=== PATIENT | male | born 1960 | race Caucasian/White ===

== ENCOUNTER 2017-04-21 15:06 | Inpatient (IN) ==
[2017-04-21] MEDS ORDERED: ENOXAPARIN 100 MG/ML SYRINGE SUBCUT STA (16:06)
[2017-04-21] MEDS ORDERED: NITROGLYCERIN SL 0.4 MG TABLET SL PRN (16:06)
[2017-04-21] MEDS ORDERED: ENOXAPARIN 100 MG/ML SYRINGE SUBCUT ONE (16:26)
[2017-04-21] MEDS ORDERED: NITROGLYCERIN 2% OINT 1 INCH/GM PACK TOP ONE (16:27)
[2017-04-21 16:34] LABS: Basophils % 0.7 % (0.0-0.8); Eosinophils # 0.1 10*3/uL (0.0-0.87); Eosinophils % 1.4 % (0.00-10.9); Hematocrit 22.8 VOL% (42.0-52.0); Hemoglobin 7.2 GM/DL (14.0-18.0); Immature Granulocytes % 0.2 %; Immature Granulocytes Absolute 0.01 #; Lymphocytes % 22.4 % (21.2-54.2); Mean Corpuscular HGB Conc 31.6 GM/DL (32-36); Mean Corpuscular Hemoglobin 26 PG (27-34); Mean Corpuscular Volume 82.9 FL (87-102); Mean Platelet Volume 11.6 FL (9.6-12.0); Monocytes # 0.5 10*3/uL (0.11-0.8); Monocytes % 11.3 % (1.7-12.7); Neutrophils # 2.7 10*3/uL (1.4-7.4); Platelet Count 125 T/CUMM (130-400); Red Blood Count 2.75 MC/CUMM (3.8-5.5); Red Cell Distribution Width 14.4 % (9.3-17.3); White Blood Count 4.2 T/CUMM (4-12)
[2017-04-21 17:09] LABS: Albumin 3.5 G/DL (3.4-5.0); Bilirubin,Total 0.4 MG/DL (0.2-1.0); Calcium 8.3 MG/DL (8.5-10.1); Osmolality,Calculated 285.4 MOS/KG (273-304); Potassium 4.5 MMOL/L (3.5-5.1); Total Protein 6.7 G/DL (6.4-8.3)
[2017-04-21] MEDS ORDERED: SODIUM CHLORIDE 0.9% 1,000 ML IV STA (17:17)
[2017-04-21] MEDS ORDERED: ONDANSETRON 4 MG/2 ML VIAL IV PRN (18:08)
[2017-04-21] MEDS ORDERED: GLUCAGON 1 MG VIAL IM PRN (18:08)
[2017-04-21] MEDS ORDERED: DEXTROSE 50% 25 GM/50 ML VIAL IV PRN (18:08)
[2017-04-21] MEDS ORDERED: LACTULOSE 20 GM/30 ML UDCUP PO PRN (18:08)
[2017-04-21] MEDS ORDERED: SODIUM CHLORIDE 0.9% 250 ML IV PRN (18:08)
[2017-04-21] MEDS ORDERED: DOCUSATE SODIUM 100 MG CAPSULE PO PRN (18:08)
[2017-04-21 18:37] LABS: Hematocrit 22.2 VOL% (42.0-52.0); Hemoglobin 7.3 GM/DL (14.0-18.0)
[2017-04-21 19:13] LABS: % Iron Saturation 2.8 % (18-50); Ferritin 22.4 ng/ml (26-388)
[2017-04-21 19:21] LABS: Folate 20.8 NG/ML (5.4-24.0)
[2017-04-21] MEDS ORDERED: ATORVASTATIN 20 MG TABLET PO SCH (23:28)
[2017-04-22 00:07] LABS: INR 1.1; PT Patient Result 11.3 SECS; Partial Thromboplastin Time 26.8 SECS (0-40)
[2017-04-22] MEDS ORDERED: CETIRIZINE 10 MG TABLET PO STA (01:22)
[2017-04-22] MEDS ORDERED: CETIRIZINE 10 MG TABLET ONE (01:33)
[2017-04-22] MEDS ORDERED: ATORVASTATIN 40 MG TABLET ONE (01:33)
[2017-04-22] MEDS ORDERED: PANTOPRAZOLE 40 MG VIAL IV ONE (01:33)
[2017-04-22] MEDS: PANTOPRAZOLE 40 MG VIAL IV SCH ×3 (01:37→21:39)
[2017-04-22] MEDS: INSULIN LISPRO 100 UNIT/ML SUBCUT SCH ×5 (01:42→21:39)
[2017-04-22 04:11] LABS: Basophils # 0.1 10*3/uL (0.0-0.2); Basophils % 1.4 % (0.0-0.8); Eosinophils # 0.1 10*3/uL (0.0-0.87); Eosinophils % 1.8 % (0.00-10.9); Hematocrit 25.5 VOL% (42.0-52.0); Hemoglobin 8.2 GM/DL (14.0-18.0); Immature Granulocytes % 0.2 %; Immature Granulocytes Absolute 0.01 #; Lymphocytes # 1.3 10*3/uL (1.4-4.0); Lymphocytes % 30.2 % (21.2-54.2); Mean Corpuscular HGB Conc 32.2 GM/DL (32-36); Mean Corpuscular Hemoglobin 26 PG (27-34); Mean Platelet Volume 11.8 FL (9.6-12.0); Monocytes # 0.6 10*3/uL (0.11-0.8); Monocytes % 14.1 % (1.7-12.7); Neutrophils # 2.3 10*3/uL (1.4-7.4); Neutrophils % 52.3 % (38.7-73.9); Platelet Count 111 T/CUMM (130-400); Red Blood Count 3.11 MC/CUMM (3.8-5.5); Red Cell Distribution Width 13.9 % (9.3-17.3); White Blood Count 4.4 T/CUMM (4-12)
[2017-04-22 04:53] LABS: Albumin 3.5 G/DL (3.4-5.0); Bilirubin,Total 0.4 MG/DL (0.2-1.0); Calcium 8.3 MG/DL (8.5-10.1); Osmolality,Calculated 282.5 MOS/KG (273-304); Potassium 3.9 MMOL/L (3.5-5.1); Risk Ratio 8.39; Total Protein 6.4 G/DL (6.4-8.3); VLDL CHOLESTEROL 55.2 MG/DL
[2017-04-22] MEDS ORDERED: ACETAMINOPHEN 325 MG TABLET ONE (05:16)
[2017-04-22] MEDS: ACETAMINOPHEN 325 MG TABLET PO PRN ×2 (05:18→12:23)
[2017-04-22] MEDS: SODIUM CHLORIDE 0.9% 1,000 ML IV SCH ×2 (08:34→18:08)
[2017-04-22 09:24] LABS: Hematocrit 27.3 VOL% (42.0-52.0); Hemoglobin 8.6 GM/DL (14.0-18.0)
[2017-04-22] MEDS ORDERED: SODIUM CHLORIDE 0.9% 1,000 ML IV SCH (09:56)
[2017-04-22] MEDS: GABAPENTIN 300 MG CAPSULE PO SCH (09:59)
[2017-04-22] MEDS: SERTRALINE 25 MG TABLET PO SCH (09:59)
[2017-04-22] MEDS ORDERED: IRON DEXTRAN 25 MG in SYRINGE 1 EACH IV ONE (10:00)
[2017-04-22] MEDS ORDERED: IRON DEXTRAN IV ONE (10:30)
[2017-04-22] MEDS ORDERED: SODIUM CHLORIDE 0.9% IV ONE (10:30)
[2017-04-22] MEDS ORDERED: MORPHINE 2 MG/1 ML SYRINGE IV PRN (11:32)
[2017-04-22] MEDS: EZETIMIBE 10 MG TABLET PO SCH (12:22)
[2017-04-22 12:31] LABS: Hematocrit 28.8 VOL% (42.0-52.0); Hemoglobin 9.2 GM/DL (14.0-18.0)
[2017-04-22] MEDS: CARVEDILOL 3.125 MG TABLET PO SCH ×2 (15:18→21:39)
[2017-04-22] MEDS: INSULIN GLARGINE 100 UNIT/ML SUBCUT SCH (17:01)
[2017-04-23 03:11] LABS: Hematocrit 27.7 VOL% (42.0-52.0); Hemoglobin 8.9 GM/DL (14.0-18.0); Lymphocytes % 21.5 % (21.2-54.2); Mean Corpuscular HGB Conc 32.1 GM/DL (32-36); Mean Corpuscular Hemoglobin 27 PG (27-34); Mean Corpuscular Volume 82.9 FL (87-102); Mean Platelet Volume 12.1 FL (9.6-12.0); Monocytes % 11.1 % (1.7-12.7); Neutrophils % 64.2 % (38.7-73.9); Platelet Count 110 T/CUMM (130-400); Red Blood Count 3.34 MC/CUMM (3.8-5.5); Red Cell Distribution Width 14.4 % (9.3-17.3)
[2017-04-23 03:12] LABS: Basophils % 0.8 % (0.0-0.8); Eosinophils # 0.1 10*3/uL (0.0-0.87); Immature Granulocytes % 0.4 %; Immature Granulocytes Absolute 0.02 #; Lymphocytes # 1.1 10*3/uL (1.4-4.0); Monocytes # 0.6 10*3/uL (0.11-0.8); Neutrophils # 3.2 10*3/uL (1.4-7.4)
[2017-04-23 04:16] LABS: Albumin 3.2 G/DL (3.4-5.0); Bilirubin,Total 0.8 MG/DL (0.2-1.0); Calcium 8.1 MG/DL (8.5-10.1); Osmolality,Calculated 285.1 MOS/KG (273-304); Potassium 4.2 MMOL/L (3.5-5.1); Total Protein 6.2 G/DL (6.4-8.3)
[2017-04-23] MEDS: ACETAMINOPHEN 325 MG TABLET PO PRN ×2 (05:11→20:57)
[2017-04-23] MEDS: CARVEDILOL 3.125 MG TABLET PO SCH ×2 (09:26→20:58)
[2017-04-23] MEDS: SERTRALINE 25 MG TABLET PO SCH (09:26)
[2017-04-23] MEDS: PANTOPRAZOLE 40 MG VIAL IV SCH (09:27)
[2017-04-23] MEDS: GABAPENTIN 300 MG CAPSULE PO SCH (09:27)
[2017-04-23] MEDS: EZETIMIBE 10 MG TABLET PO SCH (09:30)
[2017-04-23] MEDS: Liraglutide [Victoza 2-Pak] 1.8 MG SUBCUT SCH (10:14)
[2017-04-23] MEDS: INSULIN LISPRO 100 UNIT/ML SUBCUT SCH ×4 (10:14→20:57)
[2017-04-23] MEDS: ASPIRIN EC 81 MG TABLET PO SCH (13:20)
[2017-04-23] MEDS: INSULIN GLARGINE 100 UNIT/ML SUBCUT SCH (13:21)
[2017-04-23] MEDS: PANTOPRAZOLE 40 MG TABLET PO SCH (20:57)
[2017-04-24 06:35] LABS: Basophils % 0.9 % (0.0-0.8); Eosinophils # 0.1 10*3/uL (0.0-0.87); Eosinophils % 2.1 % (0.00-10.9); Hematocrit 28.1 VOL% (42.0-52.0); Hemoglobin 8.9 GM/DL (14.0-18.0); Immature Granulocytes % 0.6 %; Immature Granulocytes Absolute 0.03 #; Lymphocytes # 1.4 10*3/uL (1.4-4.0); Lymphocytes % 29.8 % (21.2-54.2); Mean Corpuscular HGB Conc 31.7 GM/DL (32-36); Mean Corpuscular Hemoglobin 26 PG (27-34); Mean Corpuscular Volume 82.9 FL (87-102); Mean Platelet Volume 11.5 FL (9.6-12.0); Monocytes # 0.6 10*3/uL (0.11-0.8); Monocytes % 13.7 % (1.7-12.7); Neutrophils # 2.5 10*3/uL (1.4-7.4); Neutrophils % 52.9 % (38.7-73.9); Platelet Count 106 T/CUMM (130-400); Red Blood Count 3.39 MC/CUMM (3.8-5.5); Red Cell Distribution Width 14.7 % (9.3-17.3); White Blood Count 4.7 T/CUMM (4-12)
[2017-04-24 07:01] LABS: Albumin 3.1 G/DL (3.4-5.0); Bilirubin,Total 0.9 MG/DL (0.2-1.0); Calcium 8.6 MG/DL (8.5-10.1); Osmolality,Calculated 282.1 MOS/KG (273-304); Total Protein 5.9 G/DL (6.4-8.3)
[2017-04-24 08:31] VITALS: BP 120/68
[2017-04-24] MEDS: INSULIN LISPRO 100 UNIT/ML SUBCUT SCH (08:54)
[2017-04-24] MEDS: ASPIRIN EC 81 MG TABLET PO SCH (08:56)
[2017-04-24] MEDS: INSULIN GLARGINE 100 UNIT/ML SUBCUT SCH (08:56)
[2017-04-24] MEDS: GABAPENTIN 300 MG CAPSULE PO SCH (08:56)
[2017-04-24] MEDS: EZETIMIBE 10 MG TABLET PO SCH (08:56)
[2017-04-24] MEDS: SERTRALINE 25 MG TABLET PO SCH (08:56)
[2017-04-24] MEDS: PANTOPRAZOLE 40 MG TABLET PO SCH (08:56)
[2017-04-24] MEDS: CARVEDILOL 3.125 MG TABLET PO SCH (08:56)
[2017-04-24] MEDS: Liraglutide [Victoza 2-Pak] 1.8 MG SUBCUT SCH (10:16)
== END 2017-04-24 12:33 | disposition home or self-care (01) | DRG 281 ==
LOC: N.ED 15:06 → N.EDINP 17:34 → N.CC 04-22 05:57 → N.TELEN 04-22 16:09
PROVIDERS: ADMIT Internal Medicine; ATTEND Internal Medicine

== ENCOUNTER 2017-08-12 15:57 | Inpatient (IN) ==
[2017-08-12] MEDS ORDERED: NITROGLYCERIN 2% OINT 1 INCH/GM PACK TOP ONE (16:14)
[2017-08-12] MEDS ORDERED: ENOXAPARIN 120 MG/0.8 ML SYRINGE SUBCUT ONE (16:14)
[2017-08-12] MEDS ORDERED: ASPIRIN EC 325 MG TABLET PO ONE (16:14)
[2017-08-12] MEDS ORDERED: ASPIRIN 325 MG TABLET ONE (16:16)
[2017-08-12] MEDS ORDERED: NITROGLYCERIN SL 0.4 MG TABLET SL PRN (16:18)
[2017-08-12] MEDS ORDERED: ASPIRIN 325 MG TABLET PO STA (16:18)
[2017-08-12] MEDS ORDERED: ENOXAPARIN 100 MG/ML SYRINGE SUBCUT STA (16:18)
[2017-08-12 16:24] LABS: Basophils % 0.9 % (0.0-0.8); Eosinophils % 0.6 % (0.00-10.9); Hemoglobin 7.6 GM/DL (14.0-18.0); Immature Granulocytes % 0.3 %; Immature Granulocytes Absolute 0.01 #; Lymphocytes # 0.8 10*3/uL (1.4-4.0); Lymphocytes % 24.1 % (21.2-54.2); Mean Corpuscular HGB Conc 29.2 GM/DL (32-36); Mean Corpuscular Hemoglobin 22 PG (27-34); Mean Corpuscular Volume 75.1 FL (87-102); Mean Platelet Volume 11.8 FL (9.6-12.0); Monocytes # 0.4 10*3/uL (0.11-0.8); Monocytes % 10.3 % (1.7-12.7); Neutrophils # 2.2 10*3/uL (1.4-7.4); Neutrophils % 63.8 % (38.7-73.9); Platelet Count 127 T/CUMM (130-400); Red Blood Count 3.46 MC/CUMM (3.8-5.5); Red Cell Distribution Width 15.9 % (9.3-17.3); White Blood Count 3.4 T/CUMM (4-12)
[2017-08-12 16:51] LABS: Alanine Aminotransferase 35 U/L (16-61); Albumin 3.8 G/DL (3.4-5.0); Alkaline Phosphatase 88 U/L (45-117); Aspartate Amino Transferase 27 U/L (0-37); Bilirubin,Total < 0.39 MG/DL (0.2-1.0); Blood Urea Nitrogen 12 MG/DL (7-18); Glucose 220 MG/DL (74-106); Magnesium 2.2 MG/DL (1.8-2.4); Osmolality,Calculated 283.5 MOS/KG (273-304); Potassium 4.3 MMOL/L (3.5-5.1); Sodium 139 MMOL/L (136-145); Total Protein 7.2 G/DL (6.4-8.3)
[2017-08-12] MEDS ORDERED: HYDROmorphone 2 MG/1 ML VIAL ONE (17:11)
[2017-08-12] MEDS ORDERED: MIDAZOLAM 2 MG/2 ML VIAL ONE (17:11)
[2017-08-12] MEDS ORDERED: LIDOCAINE 1% 20 ML VIAL ONE (17:12)
[2017-08-12] MEDS ORDERED: TICAGRELOR 90 MG TABLET ONE (17:35)
[2017-08-12] MEDS ORDERED: ONDANSETRON 4 MG/2 ML VIAL IV PRN (18:31)
[2017-08-12] MEDS ORDERED: SODIUM CHLORIDE 0.45% 1,000 ML IV SCH (19:00)
[2017-08-12] MEDS ORDERED: METOPROLOL TARTRATE 50 MG TABLET PO SCH (21:00)
[2017-08-12] MEDS: ROSUVASTATIN 20 MG TABLET PO SCH (21:23)
[2017-08-12] MEDS: GLIMEPIRIDE 2 MG TABLET PO SCH (21:23)
[2017-08-12] MEDS: OMEGA 3 ACID ETHYL ESTERS 1 GM CAPSULE PO SCH (21:23)
[2017-08-12] MEDS: ACETAMINOPHEN 325 MG TABLET PO SCH (21:23)
[2017-08-12] MEDS: CARVEDILOL 12.5 MG TABLET PO SCH (21:24)
[2017-08-13 06:06] LABS: Basophils % 0.6 % (0.0-0.8); Eosinophils # 0.1 10*3/uL (0.0-0.87); Eosinophils % 1.3 % (0.00-10.9); Hematocrit 27.2 VOL% (42.0-52.0); Hemoglobin 8.1 GM/DL (14.0-18.0); Immature Granulocytes % 0.3 %; Immature Granulocytes Absolute 0.02 #; Lymphocytes # 1.1 10*3/uL (1.4-4.0); Lymphocytes % 18.2 % (21.2-54.2); Mean Corpuscular HGB Conc 29.8 GM/DL (32-36); Mean Corpuscular Hemoglobin 22 PG (27-34); Mean Corpuscular Volume 73.1 FL (87-102); Mean Platelet Volume 11.6 FL (9.6-12.0); Monocytes # 0.7 10*3/uL (0.11-0.8); Monocytes % 10.8 % (1.7-12.7); Neutrophils # 4.3 10*3/uL (1.4-7.4); Neutrophils % 68.8 % (38.7-73.9); Platelet Count 148 T/CUMM (130-400); Red Blood Count 3.72 MC/CUMM (3.8-5.5); Red Cell Distribution Width 15.8 % (9.3-17.3); White Blood Count 6.3 T/CUMM (4-12)
[2017-08-13 06:42] LABS: CKMB % 4.9 %; Calcium 9.3 MG/DL (8.5-10.1); Osmolality,Calculated 276.5 MOS/KG (273-304); Potassium 3.3 MMOL/L (3.5-5.1)
[2017-08-13 06:48] LABS: Troponin I Only 2.47 NG/ML (0.00-0.045)
[2017-08-13] MEDS ORDERED: PANTOPRAZOLE 40 MG TABLET PO SCH (09:00)
[2017-08-13] MEDS: ROSUVASTATIN 20 MG TABLET PO SCH (09:39)
[2017-08-13] MEDS: OMEGA 3 ACID ETHYL ESTERS 1 GM CAPSULE PO SCH ×2 (09:39→21:10)
[2017-08-13] MEDS: ASPIRIN EC 81 MG TABLET PO SCH (09:39)
[2017-08-13] MEDS: CARVEDILOL 12.5 MG TABLET PO SCH ×2 (09:39→17:06)
[2017-08-13] MEDS: MULTIVITAMIN (CENTRUM) TABLET PO SCH (09:39)
[2017-08-13] MEDS: GABAPENTIN 300 MG CAPSULE PO SCH (09:39)
[2017-08-13] MEDS: GLIMEPIRIDE 2 MG TABLET PO SCH ×2 (09:39→21:10)
[2017-08-13] MEDS: MONTELUKAST 10 MG TABLET PO SCH (09:40)
[2017-08-13] MEDS: EZETIMIBE 10 MG TABLET PO SCH (09:40)
[2017-08-13] MEDS: ACETAMINOPHEN 325 MG TABLET PO SCH (09:40)
[2017-08-13] MEDS: SERTRALINE 25 MG TABLET PO SCH (09:40)
[2017-08-13] MEDS ORDERED: POTASSIUM CHLORIDE 20 MEQ TABLET PO ONE (10:01)
[2017-08-13] MEDS ORDERED: CLOPIDOGREL 300 MG TABLET PO ONE ×2 (10:01→10:06)
[2017-08-13] MEDS ORDERED: LISINOPRIL 5 MG TABLET PO SCH (10:30)
[2017-08-13] MEDS: FAMOTIDINE 20 MG TABLET PO SCH ×2 (10:31→21:10)
[2017-08-13] MEDS: Insulin Degludec [Tresiba Flextouch U-100] SUBCUT SCH (17:06)
[2017-08-14] MEDS: GLIMEPIRIDE 2 MG TABLET PO SCH ×2 (08:34→21:01)
[2017-08-14] MEDS: ASPIRIN EC 81 MG TABLET PO SCH (08:34)
[2017-08-14] MEDS: MONTELUKAST 10 MG TABLET PO SCH (08:34)
[2017-08-14] MEDS: GABAPENTIN 300 MG CAPSULE PO SCH (08:34)
[2017-08-14] MEDS: CLOPIDOGREL 75 MG TABLET PO SCH (08:34)
[2017-08-14] MEDS: SERTRALINE 25 MG TABLET PO SCH (08:35)
[2017-08-14] MEDS: MULTIVITAMIN (CENTRUM) TABLET PO SCH (08:35)
[2017-08-14] MEDS: ROSUVASTATIN 20 MG TABLET PO SCH (08:35)
[2017-08-14] MEDS: FAMOTIDINE 20 MG TABLET PO SCH ×2 (08:35→21:01)
[2017-08-14] MEDS: OMEGA 3 ACID ETHYL ESTERS 1 GM CAPSULE PO SCH ×2 (08:35→21:01)
[2017-08-14] MEDS: Liraglutide [Victoza 2-Pak] SUBCUT SCH (08:36)
[2017-08-14] MEDS: CARVEDILOL 12.5 MG TABLET PO SCH ×2 (08:41→17:25)
[2017-08-14] MEDS: EZETIMIBE 10 MG TABLET PO SCH (09:23)
[2017-08-14] MEDS: Insulin Degludec [Tresiba Flextouch U-100] SUBCUT SCH (17:25)
[2017-08-15 05:18] LABS: Basophils # 0.1 10*3/uL (0.0-0.2); Basophils % 0.7 % (0.0-0.8); Eosinophils # 0.1 10*3/uL (0.0-0.87); Hematocrit 25.7 VOL% (42.0-52.0); Immature Granulocytes % 0.3 %; Immature Granulocytes Absolute 0.02 #; Lymphocytes # 1.6 10*3/uL (1.4-4.0); Lymphocytes % 23.6 % (21.2-54.2); Mean Corpuscular HGB Conc 31.1 GM/DL (32-36); Mean Corpuscular Hemoglobin 22 PG (27-34); Mean Corpuscular Volume 70.8 FL (87-102); Mean Platelet Volume 11.6 FL (9.6-12.0); Monocytes % 13.8 % (1.7-12.7); Neutrophils # 4.1 10*3/uL (1.4-7.4); Neutrophils % 59.6 % (38.7-73.9); Platelet Count 153 T/CUMM (130-400); Red Blood Count 3.63 MC/CUMM (3.8-5.5); Red Cell Distribution Width 15.8 % (9.3-17.3); White Blood Count 6.9 T/CUMM (4-12)
[2017-08-15 05:50] LABS: Calcium 8.5 MG/DL (8.5-10.1); Magnesium 2.4 MG/DL (1.8-2.4); Osmolality,Calculated 278.5 MOS/KG (273-304); Potassium 4.2 MMOL/L (3.5-5.1)
[2017-08-15] MEDS: OMEGA 3 ACID ETHYL ESTERS 1 GM CAPSULE PO SCH (09:15)
[2017-08-15] MEDS: SERTRALINE 25 MG TABLET PO SCH (09:15)
[2017-08-15] MEDS: FAMOTIDINE 20 MG TABLET PO SCH (09:15)
[2017-08-15] MEDS: GABAPENTIN 300 MG CAPSULE PO SCH (09:15)
[2017-08-15] MEDS: ROSUVASTATIN 20 MG TABLET PO SCH (09:15)
[2017-08-15] MEDS: CLOPIDOGREL 75 MG TABLET PO SCH (09:15)
[2017-08-15] MEDS: CARVEDILOL 12.5 MG TABLET PO SCH (09:15)
[2017-08-15] MEDS: EZETIMIBE 10 MG TABLET PO SCH (09:15)
[2017-08-15] MEDS: ASPIRIN EC 81 MG TABLET PO SCH (09:16)
[2017-08-15] MEDS: MONTELUKAST 10 MG TABLET PO SCH (09:16)
[2017-08-15] MEDS: GLIMEPIRIDE 2 MG TABLET PO SCH (09:16)
[2017-08-15] MEDS: MULTIVITAMIN (CENTRUM) TABLET PO SCH (09:16)
[2017-08-15] MEDS: Liraglutide [Victoza 2-Pak] SUBCUT SCH (09:17)
[2017-08-15] MEDS ORDERED: ACETAMINOPHEN 325 MG TABLET PO PRN (10:42)
[2017-08-15 12:33] VITALS: BP 135/71
== END 2017-08-15 13:00 | disposition home or self-care (01) | DRG 247 ==
LOC: N.ED 15:57 → N.CC 17:03 → N.EDINP 20:07 → N.CC 20:09 → N.TELEN 08-13 13:02
PROVIDERS: ADMIT Internal Medicine Cardiovascular Disease; ATTEND Internal Medicine Cardiovascular Disease

== ENCOUNTER 2017-08-21 15:30 | Inpatient (IN) ==
[2017-08-21 16:22] LABS: Basophils % 0.9 % (0.0-0.8); Eosinophils # 0.1 10*3/uL (0.0-0.87); Eosinophils % 1.2 % (0.00-10.9); Hematocrit 22.7 VOL% (42.0-52.0); Hemoglobin 6.6 GM/DL (14.0-18.0); Immature Granulocytes % 0.5 %; Immature Granulocytes Absolute 0.02 #; Lymphocytes # 1.1 10*3/uL (1.4-4.0); Mean Corpuscular HGB Conc 29.1 GM/DL (32-36); Mean Corpuscular Hemoglobin 21 PG (27-34); Mean Corpuscular Volume 73.5 FL (87-102); Mean Platelet Volume 11.6 FL (9.6-12.0); Monocytes # 0.6 10*3/uL (0.11-0.8); Monocytes % 12.9 % (1.7-12.7); Neutrophils # 2.6 10*3/uL (1.4-7.4); Neutrophils % 59.5 % (38.7-73.9); Platelet Count 146 T/CUMM (130-400); Red Blood Count 3.09 MC/CUMM (3.8-5.5); Red Cell Distribution Width 15.9 % (9.3-17.3); White Blood Count 4.3 T/CUMM (4-12)
[2017-08-21 16:30] LABS: INR 1.1; PT Patient Result 11.5 SECS; Partial Thromboplastin Time 26.2 SECS (0-40)
[2017-08-21 16:36] LABS: Albumin 3.8 G/DL (3.4-5.0); Bilirubin,Total 0.4 MG/DL (0.2-1.0); Osmolality,Calculated 284.5 MOS/KG (273-304); Potassium 4.3 MMOL/L (3.5-5.1); Total Protein 6.5 G/DL (6.4-8.3)
[2017-08-21] MEDS ORDERED: ONDANSETRON 4 MG/2 ML VIAL ONE (17:24)
[2017-08-21] MEDS ORDERED: MORPHINE 2 MG/1 ML SYRINGE ONE (17:24)
[2017-08-21] MEDS ORDERED: DIPHTHERIA/TETANUS ADULT VACCINE 0.5 ML VIAL IM ONE (17:25)
[2017-08-21] MEDS ORDERED: ONDANSETRON 4 MG/2 ML VIAL IV PRN (18:52)
[2017-08-21] MEDS ORDERED: GLUCAGON 1 MG VIAL IM PRN (19:00)
[2017-08-21] MEDS ORDERED: DEXTROSE 50% 25 GM/50 ML VIAL IV PRN (19:00)
[2017-08-21] MEDS ORDERED: SODIUM CHLORIDE 0.9% 1,000 ML IV PRN (19:32)
[2017-08-21] MEDS: INSULIN REGULAR 100 UNIT/ML SUBCUT SCH (22:10)
[2017-08-22] MEDS ORDERED: ACETAMINOPHEN 325 MG TABLET PO PRN (02:41)
[2017-08-22 06:51] LABS: Basophils # 0.1 10*3/uL (0.0-0.2); Eosinophils # 0.1 10*3/uL (0.0-0.87); Eosinophils % 1.4 % (0.00-10.9); Hematocrit 25.4 VOL% (42.0-52.0); Hemoglobin 7.3 GM/DL (14.0-18.0); Immature Granulocytes % 0.2 %; Immature Granulocytes Absolute 0.01 #; Lymphocytes # 1.2 10*3/uL (1.4-4.0); Lymphocytes % 25.2 % (21.2-54.2); Mean Corpuscular HGB Conc 28.7 GM/DL (32-36); Mean Corpuscular Hemoglobin 22 PG (27-34); Monocytes # 0.7 10*3/uL (0.11-0.8); Monocytes % 14.2 % (1.7-12.7); Neutrophils # 2.8 10*3/uL (1.4-7.4); Platelet Count 140 T/CUMM (130-400); Red Blood Count 3.34 MC/CUMM (3.8-5.5); Red Cell Distribution Width 17.2 % (9.3-17.3); White Blood Count 4.9 T/CUMM (4-12)
[2017-08-22 07:13] LABS: Hypochromasia 1+
[2017-08-22 07:14] LABS: Microcytosis 2+; Ovalocytes Slight; Platelet Estimate Adequate
[2017-08-22 07:21] LABS: % Iron Saturation 3.4 % (18-50); Ferritin 9.2 ng/ml (26-388)
[2017-08-22 07:24] LABS: Calcium 8.3 MG/DL (8.5-10.1); Osmolality,Calculated 280.3 MOS/KG (273-304); Potassium 4.1 MMOL/L (3.5-5.1)
[2017-08-22 07:30] LABS: Folate 17.1 NG/ML (5.4-24.0); Vitamin B12 886 PG/ML (211-911)
[2017-08-22 07:56] LABS: Sedimentation Rate-Westergren 20 MM/HR (0-20)
[2017-08-22] MEDS: PANTOPRAZOLE 40 MG VIAL IV SCH (08:28)
[2017-08-22] MEDS: INSULIN REGULAR 100 UNIT/ML SUBCUT SCH ×4 (08:28→21:06)
[2017-08-22] MEDS ORDERED: NITROGLYCERIN SL 0.4 MG TABLET SL PRN (08:30)
[2017-08-22] MEDS ORDERED: FUROSEMIDE 40 MG TABLET PO PRN (08:30)
[2017-08-22] MEDS: Liraglutide [Victoza 2-Pak] 1.8 MG SUBCUT SCH (08:45)
[2017-08-22] MEDS ORDERED: PANTOPRAZOLE 40 MG VIAL IV SCH (09:00)
[2017-08-22] MEDS: OMEGA 3 ACID ETHYL ESTERS 1 GM CAPSULE PO SCH ×2 (09:30→21:05)
[2017-08-22] MEDS: EZETIMIBE 10 MG TABLET PO SCH (09:31)
[2017-08-22] MEDS: GABAPENTIN 300 MG CAPSULE PO SCH (09:31)
[2017-08-22] MEDS: MONTELUKAST 10 MG TABLET PO SCH (09:31)
[2017-08-22] MEDS: LISINOPRIL 2.5 MG TABLET PO SCH (09:31)
[2017-08-22] MEDS: MULTIVITAMIN (CENTRUM) TABLET PO SCH (09:31)
[2017-08-22] MEDS: ROSUVASTATIN 20 MG TABLET PO SCH (09:31)
[2017-08-22] MEDS: GLIMEPIRIDE 2 MG TABLET PO SCH ×2 (09:31→21:06)
[2017-08-22] MEDS: CARVEDILOL 12.5 MG TABLET PO SCH ×2 (09:32→21:06)
[2017-08-22] MEDS: SERTRALINE 25 MG TABLET PO SCH (09:32)
[2017-08-22] MEDS: ASPIRIN EC 81 MG TABLET PO SCH (09:32)
[2017-08-22] MEDS: CLOPIDOGREL 75 MG TABLET PO SCH (11:22)
[2017-08-22] MEDS ORDERED: DEXTROSE 50% 25 GM/50 ML VIAL IV PRN (12:24)
[2017-08-22] MEDS ORDERED: GLUCAGON 1 MG VIAL IM PRN (12:24)
[2017-08-22 12:27] LABS: Hematocrit 26.3 VOL% (42.0-52.0); Hemoglobin 7.7 GM/DL (14.0-18.0)
[2017-08-22] MEDS ORDERED: SODIUM CHLORIDE 0.9% 1,000 ML IV PRN ×2 (13:27→14:02)
[2017-08-22] MEDS ORDERED: Insulin Degludec [Tresiba Flextouch U-100] 20 UNIT SUBCUT SCH (17:00)
[2017-08-22] MEDS: FERROUS SULFATE 325 MG TABLET PO SCH (21:05)
[2017-08-23] MEDS ORDERED: ZALEPLON 5 MG CAPSULE PO ONE ×2 (00:30→20:44)
[2017-08-23 06:21] LABS: Eosinophils # 0.1 10*3/uL (0.0-0.87); Eosinophils % 2.4 % (0.00-10.9); Hematocrit 27.7 VOL% (42.0-52.0); Hemoglobin 8.7 GM/DL (14.0-18.0); Immature Granulocytes % 0.5 %; Immature Granulocytes Absolute 0.02 #; Lymphocytes # 1.1 10*3/uL (1.4-4.0); Lymphocytes % 27.6 % (21.2-54.2); Mean Corpuscular HGB Conc 31.4 GM/DL (32-36); Mean Corpuscular Hemoglobin 23 PG (27-34); Mean Corpuscular Volume 73.9 FL (87-102); Mean Platelet Volume 11.2 FL (9.6-12.0); Monocytes # 0.6 10*3/uL (0.11-0.8); Monocytes % 15.5 % (1.7-12.7); Neutrophils # 2.2 10*3/uL (1.4-7.4); Platelet Count 134 T/CUMM (130-400); Red Blood Count 3.75 MC/CUMM (3.8-5.5); Red Cell Distribution Width 17.5 % (9.3-17.3); White Blood Count 4.1 T/CUMM (4-12)
[2017-08-23 06:54] LABS: Calcium 8.7 MG/DL (8.5-10.1); Osmolality,Calculated 282.1 MOS/KG (273-304)
[2017-08-23] MEDS: INSULIN REGULAR 100 UNIT/ML SUBCUT SCH ×4 (09:00→21:14)
[2017-08-23] MEDS ORDERED: SODIUM CHLORIDE 0.9% 1,000 ML IV PRN (09:06)
[2017-08-23 12:09] LABS: Hemoglobin A1 (Alkaline) 97.7 % (96.5-98.5); Hemoglobin A2 (Alkaline) 2.3 % (1.5-3.5)
[2017-08-23] MEDS: CLOPIDOGREL 75 MG TABLET PO SCH (15:30)
[2017-08-23] MEDS: GLIMEPIRIDE 2 MG TABLET PO SCH ×2 (15:31→21:14)
[2017-08-23] MEDS: MONTELUKAST 10 MG TABLET PO SCH (15:31)
[2017-08-23] MEDS: LISINOPRIL 2.5 MG TABLET PO SCH (15:31)
[2017-08-23] MEDS: MULTIVITAMIN (CENTRUM) TABLET PO SCH (15:31)
[2017-08-23] MEDS: ROSUVASTATIN 20 MG TABLET PO SCH (15:31)
[2017-08-23] MEDS: EZETIMIBE 10 MG TABLET PO SCH (15:31)
[2017-08-23] MEDS: GABAPENTIN 300 MG CAPSULE PO SCH (15:32)
[2017-08-23] MEDS: ASPIRIN EC 81 MG TABLET PO SCH (15:32)
[2017-08-23] MEDS: FERROUS SULFATE 325 MG TABLET PO SCH ×2 (15:32→21:14)
[2017-08-23] MEDS: OMEGA 3 ACID ETHYL ESTERS 1 GM CAPSULE PO SCH ×2 (15:32→21:14)
[2017-08-23] MEDS: SERTRALINE 25 MG TABLET PO SCH (15:32)
[2017-08-23] MEDS: CARVEDILOL 12.5 MG TABLET PO SCH ×2 (15:32→21:14)
[2017-08-23] MEDS: Liraglutide [Victoza 2-Pak] 1.8 MG SUBCUT SCH (15:33)
[2017-08-23] MEDS: PANTOPRAZOLE 40 MG VIAL IV SCH (15:33)
[2017-08-23 18:50] LABS: Hemoglobin 10.1 GM/DL (14.0-18.0)
[2017-08-24 05:46] LABS: Basophils # 0.1 10*3/uL (0.0-0.2); Eosinophils # 0.1 10*3/uL (0.0-0.87); Eosinophils % 1.4 % (0.00-10.9); Hematocrit 32.8 VOL% (42.0-52.0); Immature Granulocytes % 0.3 %; Immature Granulocytes Absolute 0.02 #; Lymphocytes # 1.4 10*3/uL (1.4-4.0); Lymphocytes % 21.8 % (21.2-54.2); Mean Corpuscular HGB Conc 30.5 GM/DL (32-36); Mean Corpuscular Hemoglobin 24 PG (27-34); Mean Platelet Volume 11.9 FL (9.6-12.0); Monocytes # 0.9 10*3/uL (0.11-0.8); Monocytes % 13.6 % (1.7-12.7); Neutrophils # 3.9 10*3/uL (1.4-7.4); Neutrophils % 61.9 % (38.7-73.9); Platelet Count 139 T/CUMM (130-400); Red Blood Count 4.26 MC/CUMM (3.8-5.5); Red Cell Distribution Width 19.2 % (9.3-17.3); White Blood Count 6.3 T/CUMM (4-12)
[2017-08-24 06:17] LABS: Calcium 8.6 MG/DL (8.5-10.1); Osmolality,Calculated 280.3 MOS/KG (273-304)
[2017-08-24] MEDS: INSULIN REGULAR 100 UNIT/ML SUBCUT SCH ×2 (09:22→12:44)
[2017-08-24] MEDS: Liraglutide [Victoza 2-Pak] 1.8 MG SUBCUT SCH (09:27)
[2017-08-24] MEDS: GLIMEPIRIDE 2 MG TABLET PO SCH (09:28)
[2017-08-24] MEDS: FERROUS SULFATE 325 MG TABLET PO SCH (09:28)
[2017-08-24] MEDS: ASPIRIN EC 81 MG TABLET PO SCH (09:28)
[2017-08-24] MEDS: OMEGA 3 ACID ETHYL ESTERS 1 GM CAPSULE PO SCH (09:29)
[2017-08-24] MEDS: ROSUVASTATIN 20 MG TABLET PO SCH (09:29)
[2017-08-24] MEDS: CARVEDILOL 12.5 MG TABLET PO SCH (09:29)
[2017-08-24] MEDS: LISINOPRIL 2.5 MG TABLET PO SCH (09:29)
[2017-08-24] MEDS: SERTRALINE 25 MG TABLET PO SCH (09:29)
[2017-08-24] MEDS: EZETIMIBE 10 MG TABLET PO SCH (09:29)
[2017-08-24] MEDS: CLOPIDOGREL 75 MG TABLET PO SCH (09:29)
[2017-08-24] MEDS: GABAPENTIN 300 MG CAPSULE PO SCH (09:29)
[2017-08-24] MEDS: MULTIVITAMIN (CENTRUM) TABLET PO SCH (09:29)
[2017-08-24] MEDS: MONTELUKAST 10 MG TABLET PO SCH (09:29)
[2017-08-24] MEDS ORDERED: ETOMIDATE 20 MG/10 ML VIAL IV ONE (10:52)
[2017-08-24] MEDS ORDERED: LIDOCAINE 100 MG/5 ML SYRINGE ONE (10:52)
[2017-08-24 11:43] VITALS: BP 132/76
[2017-08-24] MEDS: PANTOPRAZOLE 40 MG VIAL IV SCH (12:38)
== END 2017-08-24 13:06 | disposition home or self-care (01) | DRG 377 ==
LOC: N.ED 15:30 → N.EDINP 18:52 → N.TELEN 19:39
PROVIDERS: ADMIT Internal Medicine; ATTEND Internal Medicine